=== PATIENT | male | born 1985 | race African-American/Black ===

== ENCOUNTER 2021-07-04 01:49 | Inpatient (IN) | payer MEDICAID ==
[~2021-07-04] VITALS: Ht 172.7 cm; Wt 94.3 kg
[2021-07-04 03:47] LABS: BASOPHILS % 0.5 % (0.0-2.0); HEMATOCRIT. 42.9 % (42.0-52.0); HEMOGLOBIN. 14.7 g/dL (14.0-18.0); LYMPHOCYTES % 17.4 % (20.0-50.0); MEAN CORPUSCULAR HEMOGLOBIN 29.5 pg (28.0-32.0); MEAN CORPUSCULAR VOLUME 86.1 fL (80.0-94.0); MEAN PLATELET VOLUME 8.1 fl (7.4-10.4); MONOCYTES % 3.3 % (2.0-8.0); NEUTROPHILS % 78.8 % (40.0-76.0); PLATELET 232 x1000/uL (130-400); RED BLOOD CELL COUNT 4.98 mill/uL (4.7-6.1); RED CELL DISTRIBUTION WIDTH 13.2 % (11.6-14.6)
[2021-07-04 03:49] LABS: CHLORIDE 101 mEq/L (98-107)
[2021-07-04] MEDS ORDERED: VANCOMYCIN 750 MG PREMIX 150 ML IV SCH (04:30)
[2021-07-04] MEDS ORDERED: LEVOFLOXACIN 750MG PREMIX 150 ML IV ONE (04:30)
[2021-07-04] MEDS ORDERED: MORPHINE SULFATE 4 MG/ML CPJ (NOT FOR IM USE) IV ONE (04:30)
[2021-07-04 09:30] VITALS: BP 102/65
[2021-07-04] MEDS ORDERED: TOPUD PO (09:36)
[2021-07-04] MEDS ORDERED: ONDANSETRON HCL 4MG/2ML INJ IV PRN (11:45)
[2021-07-04] MEDS ORDERED: BENZONATATE 100MG CAPSULE PO PRN (11:45)
[2021-07-04] MEDS ORDERED: ACETAMINOPHEN 325MG TABLET PO PRN (11:45)
[2021-07-04 12:00] VITALS: BP 92/52
[2021-07-04] MEDS: ENOXAPARIN 30MG/0.3ML SYR SUBCUT SCH (12:56)
[2021-07-04] MEDS: DEXAMETHASONE 6MG TABLET PO SCH (14:58)
[2021-07-04 16:00] VITALS: BP 100/64
[2021-07-04 20:00] VITALS: BP 106/58
[2021-07-05] VITALS: BP 96/61
[2021-07-05] MEDS: ENOXAPARIN 30MG/0.3ML SYR SUBCUT SCH ×2 (00:25→12:19)
[2021-07-05 04:00] VITALS: BP 91/64
[2021-07-05] MEDS ORDERED: LEVOFLOXACIN 500MG PREMIX 100 ML IV SCH (06:00)
[2021-07-05 06:47] LABS: BASOPHILS % 0.7 % (0.0-2.0); HEMATOCRIT. 43.1 % (42.0-52.0); HEMOGLOBIN. 15.2 g/dL (14.0-18.0); LYMPHOCYTES % 16.5 % (20.0-50.0); MEAN CORPUSCULAR HEMOGLOBIN 29.9 pg (28.0-32.0); MEAN CORPUSCULAR VOLUME 84.4 fL (80.0-94.0); MEAN PLATELET VOLUME 8.5 fl (7.4-10.4); MONOCYTES % 5.8 % (2.0-8.0); PLATELET 286 x1000/uL (130-400); RED CELL DISTRIBUTION WIDTH 13.6 % (11.6-14.6)
[2021-07-05 06:56] LABS: CHLORIDE 109 mEq/L (98-107)
[2021-07-05 08:00] VITALS: BP 98/65
[2021-07-05] MEDS: DEXAMETHASONE 6MG TABLET PO SCH (08:36)
[2021-07-05] MEDS ORDERED: DEXAMETHASONE 4MG TABLET PO SCH (09:00)
[2021-07-05 12:00] VITALS: BP 102/60
[2021-07-05 16:00] VITALS: BP 105/61
[2021-07-05 16:10] LABS: *AMPHETAMINES SCREEN URINE NEGATIVE (NEGATIVE); *BARBITURATES SCREEN URINE NEGATIVE (NEGATIVE); *BENZODIAZEPINES SCREEN URINE NEGATIVE (NEGATIVE)
[2021-07-05 16:11] LABS: *COCAINE SCREEN URINE NEGATIVE (NEGATIVE); CANNABINOID URINE SCREEN NEGATIVE (NEGATIVE); METHADONE URINE SCREEN NEGATIVE (NEGATIVE); OPIATES URINE SCREEN PRESUMTIVE POSITIVE (NEGATIVE); PHENCYCLIDINE URINE SCREEN NEGATIVE (NEGATIVE)
== END 2021-07-05 17:10 | disposition home or self-care (01) | DRG 720 ==
LOC: ER 02:59 → 7WST 05:44 → ENRESERV 07:55
PROVIDERS: ADMIT Internal Medicine; ATTEND Internal Medicine
DX: A41.89 Other specified sepsis (principal); N17.0 Acute kidney failure with tubular necrosis; J12.82 Pneumonia due to coronavirus disease 2019; E44.1 Mild protein-calorie malnutrition; U07.1 COVID-19; D72.819 Decreased white blood cell count, unspecified; E87.1 Hypo-osmolality and hyponatremia; R74.01 Elevation of levels of liver transaminase levels; Z68.31 Body mass index [BMI] 31.0-31.9, adult
CPT/HCPCS: 36415; 71045; 80048; 80053; 80305; 83880; 84484; 85025; 87426; 93005; 99285; J1650; J1956; J2270; J3370; J7040; U0003; U0005